=== PATIENT | female | born 1975 | race Caucasian/White ===

== ENCOUNTER 2021-01-15 12:21 | Emergency (ER) | payer BC ==
[~2021-01-15] VITALS: Ht 154.9 cm; Wt 86.3 kg
[2021-01-15 14:17] VITALS: BP 163/91
== END 2021-01-15 14:17 | disposition home or self-care (01) | DRG 563 ==
LOC: ED 12:21
PROC: 2W3QX1Z Immobilization of Right Lower Leg using Splint (ICD-10-PCS; principal; 2021-01-15)
DX: S82.831A Other fracture of upper and lower end of right fibula, initial encounter for closed fracture (principal); S93.402A Sprain of unspecified ligament of left ankle, initial encounter; X50.0XXA Overexertion from strenuous movement or load, initial encounter; Y93.89 Activity, other specified; Y92.89 Other specified places as the place of occurrence of the external cause; Y99.0 Civilian activity done for income or pay